=== PATIENT | female | born 1960 | race Caucasian/White ===

== ENCOUNTER 2017-07-10 05:43 | Emergency (ER) | payer OTHER ==
[~2017-07-10] VITALS: Ht 162.6 cm; Wt 81.0 kg
[~2017-07-10 05:43] MED LIST: BENI5TAB4 PO; DOXY100T PO; GLUC1000 PO; MUPI2%T TOP
[2017-07-10 05:49] VITALS: BP 152/79; PULSE 82; RESP 18; TEMP 98; O2SAT 99
[2017-07-10] MEDS ORDERED: METF1000 PO (06:00)
[2017-07-10] MEDS ORDERED: BENI5TAB4 PO (06:00)
--- NOTE | 2017-07-10 06:28 | PD ---
HPI Chief Complaint: ENT Complaint Time Seen by Provider: 06:23 Travel History International Travel<30 days: No Contact w/Intl Traveler<30days: No Traveled to known affect area: No History of Present Illness HPI The patient is a 57-year-old female that complains of somewhat perfuse rhinorrhea and cough and postnasal drip for approximately 2 months. She did not talk to her primary care about this. She does not smoke. She denies any fever or shortness of breath. She denies any chest pain. She denies any wheezing. PFSH Past Medical History Diabetes: Yes Diminished Hearing: No Hypertension: Yes Kidney Stones: Yes Immunizations Current: Yes ?: Not : 2 Para: 1 Miscarriage: 1 Past Surgical History Abdominal Surgery: Yes (LIPOSUCTION) Genitourinary Surgery: Yes (KIDNEY STONE REMOVED) Hysterectomy: Yes Thoracic Surgery: Yes (BREAST REDUCTION) Other Surgery: Yes (VERICOSE VEIN STRIPPING) Social History Alcohol Use: Yes (RARE) Tobacco Use: No (QUIT 1995) Substance Use: No Allergies-Medications (Allergen,Severity, Reaction): Coded Allergies: lisinopril (Unverified Allergy, Severe, Rash, 01/03/17) Sulfa (Sulfonamide Antibiotics) (Unverified Allergy, Mild, Rash, 01/03/17) ampicillin (Unverified Allergy, Mild, Rash, 01/03/17) Reported Meds & Prescriptions Reported Meds & Active Scripts Active Reported Benicar (Olmesartan) 5 Mg Tab 5 Mg PO DAILY Metformin (Metformin HCl) 1,000 Mg Tab 1,000 Mg PO DAILY With a meal Review of Systems Except as stated in HPI: all other systems reviewed are Neg Physical Exam Narrative GENERAL: The patient is alert, oriented 3 in no respiratory distress. Her vital signs show blood pressure 152/79 but are otherwise normal. Oximetry is 99 %. SKIN: Focused skin assessment warm/dry. No skin rash is seen. HEAD: Atraumatic. Normocephalic. EYES: Pupils equal and round. No scleral icterus. No injection or drainage. ENT: No nasal bleeding or discharge. Mucous membranes pink and moist. The throat is clear without exudate, erythema or abscess. There is no sinus tenderness present. NECK: Trachea midline. No JVD. CARDIOVASCULAR: Regular rate and rhythm. No murmur appreciated. RESPIRATORY: No accessory muscle use. Clear to auscultation. Breath sounds equal bilaterally. No wheezes are heard. GASTROINTESTINAL: Abdomen soft, non-tender, nondistended. Hepatic and splenic margins not palpable. MUSCULOSKELETAL: No obvious deformities. No clubbing. No cyanosis. No edema. NEUROLOGICAL: Awake and alert. No obvious cranial nerve deficits. Motor grossly within normal limits. Normal speech. PSYCHIATRIC: Appropriate mood and affect; insight and judgment normal. Data Data Last Documented VS Vital Signs Date Time Temp Pulse Resp B/P (MAP) Pulse Ox O2 Delivery O2 Flow Rate FiO2 07/10/17 05:49 98.0 82 18 152/79 (103) 99 MDM Medical Decision Making Medical Screen Exam Complete: Yes Emergency Medical Condition: Yes Medical Record Reviewed: Yes Differential Diagnosis Allergic rhinorrhea, viral upper respiratory infection, pneumonia-unlikely, Narrative Course The patient may have an allergic basis for her persistent rhinorrhea. She likely at this time has a viral upper respiratory infection. There is no evidence for any sinusitis clinically. Her lungs are clear. Diagnosis Primary Impression: Viral URI Additional Impression: Allergic rhinitis Additional Instructions: As we discussed, talked to her primary care physician about this persistent runny nose and cough. This may have an allergic basis. Disposition: 01 DISCHARGE HOME Condition: Stable Ronny Hardin MD Jul 10, 2017 06:28
== END 2017-07-10 06:45 | disposition home or self-care (01) ==
LOC: PHED 05:43
DX: J06.9 Acute upper respiratory infection, unspecified (principal); J30.9 Allergic rhinitis, unspecified; E11.9 Type 2 diabetes mellitus without complications; I10 Essential (primary) hypertension; Z87.891 Personal history of nicotine dependence
CPT/HCPCS: 99282